=== PATIENT | male | born 1945 | race Caucasian/White ===

== ENCOUNTER → 2018-09-14 | Outpatient (CLI) | payer MEDICARE, OTHER ==
--- NOTE | 2018-09-14 15:56 | US ---
EXAMINATION TYPE: US abdomen comp/pelvis limited DATE OF EXAM: 09/14/2018 COMPARISON: NONE CLINICAL HISTORY: R10.11 Right upper quadrant pain, R31.9 Hematuria. EXAM MEASUREMENTS: Liver Length: 13.3 cm Gallbladder Wall: 0.2 cm CBD: 0.3 cm Spleen: 11.8 cm Right Kidney: 11.3 x 6.0 x 5.0 cm Left Kidney: 11.6 x 6.6 x 5.4 cm Pancreas: Obscured by bowel gas Liver: Heterogeneous echotexture Gallbladder: Possible polyp visualized measuring 0.4 cm CBD: wnl as visualized, limited due to overlying bowel gas Spleen: wnl Right Kidney: No hydronephrosis. Hypoechoic area visualized measuring 1.1 x 1.0 x 1.0 cm Left Kidney: No hydronephrosis. Hyperechoic area visualized mid pole measuring 1.4 x 1.2 x 1.6 cm Upper IVC: wnl Abd Aorta: Atherosclerotic changed visualized. Proximal and Mid portions appears ectatic Bladder: wnl Bilateral Jets Seen No. Left jet visualized IMPRESSION: 1. Heterogenous echotexture throughout the liver may reflect fatty liver versus diffuse hepatocellula r disease. Correlate clinically. 2. Gallbladder polyp. 3. 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 Right renal cysts. 4. Abdominal aortic ectasia.
== END | disposition home or self-care (01) ==
LOC: RADUSWWP 14:02
PROVIDERS: ATTEND Physician Assistant
DX: K82.4 Cholesterolosis of gallbladder (principal); N28.1 Cyst of kidney, acquired; I77.811 Abdominal aortic ectasia
CPT/HCPCS: 76700; 76857

== ENCOUNTER → 2018-11-04 | Outpatient (CLI) | payer MEDICARE, OTHER ==
--- NOTE | 2018-11-04 15:01 | CT ---
EXAMINATION TYPE: CT abdomen pelvis wo con DATE OF EXAM: 11/04/2018 COMPARISON: Abdominal ultrasound dated 09/14/2018 HISTORY: Right upper quadrant pain CT DLP: 1078 mGycm Automated exposure control for dose reduction was used. TECHNIQUE: Helical acquisition of images was performed from the lung bases through the pelvis. FINDINGS: LUNG BASES: Slight right hemidiaphragm elevation. LIVER/GB: Unremarkable unenhanced morphology. No cholelithiasis. The gallbladder polyps seen on the p rior ultrasound of 09/14/2017 is [address] seen [address] CT. Annual surveillance is recommended for gallbladder po lyps that are less than 1 cm. PANCREAS: No significant abnormality is seen. SPLEEN: No significant abnormality is seen. ADRENALS: No significant abnormality is seen. KIDNEYS: No hydronephrosis or nephrolithiasis. There is a 1.2 cm right upper pole renal cyst. FREE AIR: No free air is visualized ADENOPATHY: No greater than 1 cm short axis lymph node is seen in the abdomen or pelvis. REPRODUCTIVE ORGANS: Few central zone calcifications are noted. URINARY BLADDER: No significant abnormality is seen. OSSEOUS STRUCTURES: There is minimal retrolisthesis of L1 on L2 and L2 on L3 and moderate multilevel degenerative change of the spine. BOWEL: Scattered colonic diverticula are seen without pericolonic fat stranding. Appendix is contras t-filled and within normal limits. No dilated large or small bowel. OTHER: Extensive atherosclerosis is seen of the abdominal aorta and its branches. There is a question able infrarenal chronic abdominal aortic dissection seen on a single image only (series 3 image 50) a s there are 2 calcified crescentic densities suggesting a focal intimal flap. IMPRESSION: 1. COLONIC DIVERTICULOSIS WITHOUT EVIDENCE OF ACUTE DIVERTICULITIS. 2. HIDA SCAN COULD ASSESS FOR CHRONIC BILIARY DYSFUNCTION HOWEVER NO CT EVIDENCE OF ACUTE CHOLECYSTIT IS IS SEEN IN THIS PATIENT WITH RIGHT UPPER QUADRANT PAIN. THE SUBCENTIMETER POLYP IS NOT IDENTIFIED ON CT THAT WAS SEEN ON THE PRIOR ULTRASOUND OF 09/14/2018. ANNUAL SURVEILLANCE IS RECOMMENDED FOR POLY PS OF ASCITES. 3. POSSIBLE FOCAL INTRARENAL ABDOMINAL AORTIC CHRONIC DISSECTION FLAP SEEN AND A SINGLE IMAGE ONLY WI TH CALCIFIED MARGINS INDICATING CHRONICITY. BLOOD PRESSURE CONTROL IS RECOMMENDED. NO ANEURYSMAL DILA TATION.
== END | disposition home or self-care (01) ==
LOC: RADCTMAIN 13:04
PROVIDERS: ATTEND Surgery
DX: K57.30 Diverticulosis of large intestine without perforation or abscess without bleeding (principal); R31.9 Hematuria, unspecified
CPT/HCPCS: 74176

== ENCOUNTER → 2021-11-21 | Outpatient (CLI) | payer MEDICARE, OTHER ==
--- NOTE | 2021-11-21 21:42 | MR ---
EXAMINATION TYPE: MR knee RT wo con DATE OF EXAM: 11/21/2021 COMPARISON: Outside right knee x-ray November 14, 2021 HISTORY: Right Knee Pain for about one year. TECHNIQUE: Multiplanar, multisequence imaging of the right knee is performed without IV contrast. FINDINGS: MEDIAL MENISCUS: Medial extrusion medial meniscus on coronal images. Truncated posterior horn with ab normal increased signal extends towards central body which is emaciated. LATERAL MENISCUS: Anterior and posterior horns are intact without tear. CRUCIATE LIGAMENTS: The anterior and posterior cruciate ligaments are intact and unremarkable. COLLATERAL LIGAMENTS: The medial collateral ligament and lateral collateral ligament complex are inta ct and unremarkable. EXTENSOR MECHANISM: Visualized quadriceps and patellar tendons are intact. EFFUSION: Small to moderate size suprapatellar joint effusion. POPLITEAL CYST: No popliteal/jones cyst. TRICOMPARTMENT SPACES: Aexq-ii-tbtndocf tricompartmental joint space loss and spurring. CARTILAGE: Cartilaginous loss medial tibiofemoral compartment with areas of full-thickness loss seen. BONE MARROW SIGNAL: There is a heterogeneous diminished T1 and increased T2 signal in the medial tibi ofemoral compartment. OTHER: No additional significant abnormality is appreciated. IMPRESSION: 1. Full-thickness tear posterior horn medial meniscus extending into central body. 2. Tricompartment degenerative changes most prominent medial tibiofemoral compartment where moderate to advanced degenerative changes are noted as detailed above. Significant cartilaginous loss with dali ctive periarticular osseous edema noted. 3. Small to moderate-size suprapatellar joint effusion.
== END | disposition home or self-care (01) ==
LOC: RADMRIMAIN 13:08
PROVIDERS: ATTEND Orthopaedic Surgery
DX: M25.461 Effusion, right knee (principal); M23.321 Other meniscus derangements, posterior horn of medial meniscus, right knee; M17.11 Unilateral primary osteoarthritis, right knee

== ENCOUNTER 2022-01-01 08:14 | Day surgery (SDC) | payer MEDICARE, OTHER ==
[2021-12-31 09:05] VITALS: BMI 27.7
--- NOTE | 2021-12-31 17:28 | HP ---
HISTORY AND PHYSICAL DATE OF SURGERY: 01/01/2022 Mayur Gallegos is a 76-year-old patient seen with progressive right knee pain. We discussed options for treatment. He elected to proceed with right knee arthroscopy. Consent was obtained. PAST MEDICAL HISTORY: Hypertension, omq-uqxigbe-kxonmdgts diabetes, hyperlipidemia. PAST SURGICAL HISTORY: Noncontributory. DAILY MEDICATIONS: Benazepril, hydrochlorothiazide, metformin, simvastatin. ALLERGIES: NONE. SOCIAL HISTORY: He occasionally smokes cigarettes. PHYSICAL EVALUATION OF THE RIGHT KNEE: His range of motion is zero to 130. Mild effusion. Tenderness, medial joint line. Positive medial Delma's. Patellar crepitus. Ligaments stable. Hip rotation without pain. Distal neurovascular exam intact. Right knee radiographs revealed osteoarthritic changes. MRI right knee revealed medial meniscal tear and osteoarthritis. IMPRESSION: 1. Internal derangement of right knee with medial meniscal tear. 2. Right knee osteoarthritis. 3. Hypertension. 4. Hyperlipidemia. 5. Nrv-ulcxdxh-cwmvljcth diabetes. PLAN: Right knee arthroscopy with partial medial meniscectomy and debridement. MMODL / IJN: [id number] /
[~2022-01-01 08:14] MED LIST: DEXAMETHASONE SOD PHOSPHATE 4 MG/ML 1 ML VIAL IV ONE; LACTATED RINGERS 1,000 ML IV SCH; ONDANSETRON 4 MG/2 ML VIAL IVP ONE
[2022-01-01] MEDS ORDERED: LIDOCAINE 1% (10MG/ML) FOR IV START INTRADERMA ONE (09:05)
[2022-01-01 09:08] LABS: Glucose,Whole Blood 116 mg/dL (75-99)
[2022-01-01] MEDS ORDERED: PHENYLEPHRINE-0.9% NACL SYG 1,000 MCG/10 ML SYRINGE ONE (10:31)
[2022-01-01] MEDS ORDERED: LIDOCAINE 2% INJ 20 MG/ML (2 ML VIAL) ONE (10:31)
[2022-01-01] MEDS ORDERED: MIDAZOLAM 2 MG/2 ML VIAL ONE (10:31)
[2022-01-01] MEDS ORDERED: PROPOFOL 10 MG/ML 20 ML VIAL IV ONE (10:31)
[2022-01-01] MEDS ORDERED: fentaNYL (PF) 50 MCG/ML 2 ML AMP ONE (10:31)
[2022-01-01] MEDS ORDERED: BUPIVACAINE (PF) 0.25% 30 ML VIAL INTRAARTIC ONE ×2 (10:48→11:04)
[2022-01-01 11:16] VITALS: TEMP 96.8
[2022-01-01 11:16] LABS: Glucose,Whole Blood 122 mg/dL (75-99)
--- NOTE | 2022-01-01 11:16 | P.OP ---
Date of Procedure: 01/01/22 Preoperative Diagnosis: Internal derangement right knee Postoperative Diagnosis: 1. Tear medial and lateral meniscus right knee 2. Grade 4 chondromalacia medial femoral condyle right knee 3. Reactive synovitis medial, lateral and suprapatellar compartments right knee Procedure(s) Performed: 1. Arthroscopic partial medial and lateral meniscectomy right knee 2. Arthroscopic microfracture medial femoral condyle right knee 3. Arthroscopic partial synovectomy medial, lateral and suprapatellar compartments right knee Anesthesia: CLAUDIAA, local Surgeon: Tuan Shelby Estimated Blood Loss (ml): 8 Pathology: none sent Condition: stable Disposition: PACU Indications for Procedure: 76-year-old patient seen with progressive right knee pain. After treatment options were discussed, he elected to proceed with arthroscopy. Operative Findings: See description of procedure Description of Procedure: Patient was taken to the operative suite. Patient underwent a general anesthetic by the department of anesthesia. Patient was given preoperative antibiotics. The right lower extremity was placed in a well-padded arthroscopic leg albert. The right leg was prepped and draped in the normal sterile orthopedic fashion. A lateral parapatellar and suprapatellar incision was made. Trochars were inserted. Arthroscopy was initiated. Suprapatellar pouch revealed diffuse thick reactive synovitis. The patellofemoral joint appeared to articulate congruently. There was grade 2 chondromalacia the patella and grade 4 chondromalacia of the femoral sulcus with no significant osteochondral tearing present. The scope was guided into the medial gutter. No loose bodies or plica were identified. The scope was then guided into the medial compartment. A medial parapatellar incision was made. Trocar inserted followed by probe. There was a complex tear involving the posterior horn medial meniscus which did extend into the midbody area. There were areas of grade 4 chondromalacia of the femoral condyle and tibial plateau. There was thick reactive synovitis anteriorly. I performed a partial medial meniscectomy getting down to stable meniscal tissue. I performed a partial synovectomy decompressing the reactive synovitis anteriorly. I performed a microfracture to the medial femoral condyle penetrating the bone with resultant bleeding at the microfracture site. The residual meniscus was probed and was found to be stable. The residual osteochondral surface was stable. There was good decompression of the synovitis. Scope and probe were then guided into the intercondylar notch. Cruciates were identified, probed and found to be stable. The scope and probe were then guided into lateral compartment. There was a radial tear mid body lateral meniscus. There were grade 2/3 chondromalacia changes of the lateral femoral condyle. There was some thick reactive synovitis anteriorly. I performed a partial lateral meniscectomy getting down to stable meniscal tissue. I performed a partial synovectomy decompressing the reactive synovitis. The residual meniscus was probed and was found to be stable. There was good decompression of synovitis. The scope was in guided back into the suprapatellar compartment. I now introduced a motorized shaver into the suprapatellar compartment. I debrided out some piecemeal fragments of meniscus that I encountered. I performed a partial synovectomy. The shaver was now removed. There was good decompression of synovitis. I took one more look around the entire knee, no residual debris. Instruments were now removed from the joint. The joint was infiltrated with .25% Marcaine. Steri-Strips were applied to the portal sites. Sterile dressings were applied. The patient was placed into a MIRELLA hose. No tourniquet was utilized. The patient was awakened, transferred to a bed and taken to recovery stable satisfactory condition.
[2022-01-01] MEDS: HYDROmorphone 0.5 MG/0.5 ML SYRINGE IVP PRN ×3 (11:25→11:43)
[2022-01-01 11:27] VITALS: RESP 16
[2022-01-01 13:00] VITALS: BP 149/77; PULSE 59
== END 2022-01-01 13:43 | disposition home or self-care (01) ==
LOC: OR 08:14
PROVIDERS: ATTEND Orthopaedic Surgery
DX: S83.281A Other tear of lateral meniscus, current injury, right knee, initial encounter (principal); S83.241A Other tear of medial meniscus, current injury, right knee, initial encounter; I10 Essential (primary) hypertension; E11.9 Type 2 diabetes mellitus without complications; E78.5 Hyperlipidemia, unspecified; F17.210 Nicotine dependence, cigarettes, uncomplicated; Z79.84 Long term (current) use of oral hypoglycemic drugs; Z79.82 Long term (current) use of aspirin; Z79.899 Other long term (current) drug therapy
CPT/HCPCS: 29879; 29880; J2250; J1100; J0690; J2405; J3010; J2370; J2704; J1170; J2001

== ENCOUNTER → 2022-08-21 | Outpatient (CLI) | payer MEDICARE, OTHER ==
[2022-08-21 15:40] LABS: Basophils # (A) 0.04 X 10*3/uL (0.00-0.10); Basophils % (A) 0.6 %; Eosinophils # (A) 0.13 X 10*3/uL (0.04-0.35); Eosinophils % (A) 1.9 %; HCT 39.1 % (39.6-50.0); Immature Grans, Automated 0.4 %; Lymphocytes # (A) 1.79 X 10*3/uL (0.90-5.00); Lymphocytes % (A) 25.5 %; MCH 28.3 pg (27.0-32.0); MCHC 33.2 g/dL (32.0-37.0); MCV 85.2 fL (80.0-97.0); Monocytes # (A) 0.62 X 10*3/uL (0.20-1.00); Monocytes % (A) 8.8 %; NRBC Per 100 WBC 0 /100 WBCS (0.0-0.0); Neutrophils % (A) 62.8 %; Platelet Count 204 X 10*3/uL (140-440); RBC 4.59 X 10*6/uL (4.40-5.60); RDW 12.7 % (11.5-14.5); WBC 7.01 X 10*3/uL (4.50-10.00)
[2022-08-21 15:51] LABS: INR 0.94 (0.90-1.11); Prothrombin Time 10.7 sec (9.9-11.9)
[2022-08-21 18:13] LABS: African American GFR (CKD) 97.3 (60.0-200.0); Anion Gap 9.6 mmol/L (10.00-18.00); BUN/Creat Ratio 13.13 Ratio (12.00-20.00); Blood Urea Nitrogen 11.2 mg/dL (9.0-27.0); Calcium 9.1 mg/dL (8.7-10.3); Carbon Dioxide 25.9 mmol/L (20.0-27.5); Non-African American GFR(CKD) 83.9 (60.0-200.0); Potassium 4.7 mmol/L (3.5-5.5)
== END | disposition home or self-care (01) ==
LOC: LABPAT 09:32
PROVIDERS: ATTEND Orthopaedic Surgery
DX: Z01.812 Encounter for preprocedural laboratory examination (principal); M17.11 Unilateral primary osteoarthritis, right knee; Z22.322 Carrier or suspected carrier of Methicillin resistant Staphylococcus aureus
CPT/HCPCS: 80048; 85025; 85610; 87070

== ENCOUNTER 2022-09-21 08:11 | Day surgery (SDC) | payer MEDICARE, OTHER ==
--- NOTE | 2022-09-20 22:47 | HP ---
HISTORY AND PHYSICAL DATE OF SURGERY: 09/21/2022. HISTORY OF PRESENT ILLNESS: Mayur Gallegos is a 77-year-old gentleman seen with symptomatic right knee osteoarthritis. We discussed options for treatment. He elected to proceed with right total knee arthroplasty. Consent regarding the procedure was obtained. Medical clearance was provided by Dr. Alvarez. Cardiac clearance was provided by Dr. Dumont. PAST MEDICAL HISTORY: Cardiovascular disease, hypertension, hyperlipidemia, lcm-hrgjdre-ymulqnbie diabetes. PAST SURGICAL HISTORY: Knee arthroscopy. DAILY MEDICATIONS: 1. Benazepril. 2. Metformin. 3. Hydrochlorothiazide. 4. Simvastatin. ALLERGIES: None. SOCIAL HISTORY: Denies tobacco use. PHYSICAL EVALUATION OF THE RIGHT KNEE: His range of motion is 0 to 125. Mild effusion. Tenderness, medial joint line. Crepitus, medial patellofemoral compartments with range of motion. Pain with patellofemoral compression. Ligaments stable. Hip rotation without pain. Distal neurovascular exam is intact. RADIOGRAPHS: Radiographs of the right knee revealed severe osteoarthritic changes. IMPRESSION: 1. Right knee osteoarthritis. 2. Hypertension. 3. Hyperlipidemia. 4. Nxi-qvhglpa-vegfnmtji diabetes. PLAN: Right total knee arthroplasty. Surgery is scheduled for 09/21/2022. MMODL / IJN: [id number] /
[~2022-09-21 08:11] MED LIST changes: +ACETAMINOPHEN TAB 500 MG TAB PO PRN; +HYDROmorphone 0.5 MG/0.5 ML SYRINGE IVP PRN; -LACTATED RINGERS 1,000 ML IV SCH; +LIDOCAINE 1% (10MG/ML) FOR IV START INTRADERMA PRN; +MELOXICAM 7.5 MG TAB PO PRN; +MIDAZOLAM 2 MG/2 ML VIAL IV PRN; +TRANEXAMIC ACID IN NACL,ISO-OS 1,000 MG in SALINE 1 100ML.BAG IVPB PRN
[2022-09-21] MEDS ORDERED: LACTATED RINGERS 1,000 ML IV ONE ×3 (08:45→11:28)
[2022-09-21 09:04] LABS: Glucose,Whole Blood 133 mg/dL (70-110)
[2022-09-21] MEDS ORDERED: LIDOCAINE 2% (PF) 20 MG/ML 5 ML VIAL ONE (09:15)
[2022-09-21] MEDS ORDERED: fentaNYL (PF) 50 MCG/1 ML VIAL IVP ONE (09:20)
[2022-09-21] MEDS ORDERED: MIDAZOLAM 2 MG/2 ML VIAL IVP ONE (09:20)
--- NOTE | 2022-09-21 09:39 | P.ANPRN ---
Procedure Note - Anesthesia - Nerve Block Performed Right Adductor Canal Infusion Time Out Performed: Yes (0910) Date of Procedure: 09/21/22 Location of Patient: PreOp Indication: Acute Post-Operative Pain, Dx/Pain Location (Right Knee), Requested by Surgeon Specifically requested for management of pain by DrTracy: Tuan Shelby Sedation Type: Sedate with meaningful contact maintained Preparation: Sterile Prep, Sterile Dressing Position: Supine Catheter: Indwelling Needle Types: Pajunk Needle Gauge: 18 Ultrasound used to visualize needle placement: Yes Ultrasound used to observe medication spread: Yes Injectate: 0.5% Ropivacaine (see comment for volume) (20 cc + 10cc of Saline) Blood Aspirated: No Pain Paresthesia on Injection Noted: No Resistance on Injection: Normal Image Stored and Saved: Yes Events: Uneventful and Well Tolerated Right iPack Single Time Out Performed: Yes Date of Procedure: 09/21/22 Location of Patient: PreOp Indication: Acute Post-Operative Pain, Dx/Pain Location (RIGHT KNEE), Requested by Surgeon Specifically requested for management of pain by DrTracy: Tuan Shelby Sedation Type: Sedate with meaningful contact maintained Preparation: Sterile Prep Position: Left Lateral Catheter: None Needle Types: Pajunk Needle Gauge: 21 Ultrasound used to visualize needle placement: Yes Ultrasound used to observe medication spread: Yes Injectate: 0.5% Ropivacaine (see comment for volume) (20 cc + 10cc of Saline) Blood Aspirated: No Resistance on Injection: Normal Image Stored and Saved: Yes Events: Uneventful and Well Tolerated
[2022-09-21] MEDS ORDERED: fentaNYL (PF) 50 MCG/ML 2 ML AMP ONE (10:00)
[2022-09-21] MEDS ORDERED: TRANEXAMIC ACID IN NACL,ISO-OS 1,000 MG/100 ML BAG ONE (10:00)
[2022-09-21] MEDS ORDERED: ROPIVACAINE 5 MG/ML 30 ML VIAL ONE (10:00)
[2022-09-21] MEDS ORDERED: SODIUM CHLORIDE 0.9% (PF) 10 ML VIAL ONE (10:00)
[2022-09-21] MEDS ORDERED: MIDAZOLAM 2 MG/2 ML VIAL ONE (10:00)
[2022-09-21] MEDS ORDERED: PROPOFOL 10 MG/ML 20 ML VIAL IV ONE (10:00)
[2022-09-21] MEDS ORDERED: ceFAZolin 1,000 MG in SODIUM CHLORIDE 0.9% 1,000 ML IRRIGATION ONE (10:34)
[2022-09-21] MEDS ORDERED: HYDROcodone/APAP 5-325MG 1 EACH TAB PO PRN (11:52)
[2022-09-21] MEDS ORDERED: NALOXONE 0.4 MG/ML 1 ML VIAL IV PRN (11:52)
[2022-09-21] MEDS ORDERED: ONDANSETRON 4 MG/2 ML VIAL IVP PRN (11:52)
[2022-09-21] MEDS ORDERED: HYDROmorphone 0.5 MG/0.5 ML SYRINGE IVP PRN ×2 (11:52)
--- NOTE | 2022-09-21 11:52 | P.OP ---
Date of Procedure: 09/21/22 Preoperative Diagnosis: Right knee osteoarthritis Postoperative Diagnosis: Right knee osteoarthritis Procedure(s) Performed: Right total knee arthroplasty Implants: 1. Depuy attune size 8 right cruciate retaining cemented femur 2. Depuy attune size 8 fixed bearing cemented tibial baseplate 3. Depuy attune size 8 fixed bearing cruciate retaining 8 mm polyethylene tibial insert 4. Depuy attune 41 mm all polyethylene cemented patella Anesthesia: regional (Abductor canal catheter), spinal Surgeon: Tuan Shelby Bliss Press Operator #1: Eben Tejada Estimated Blood Loss (ml): 45 Pathology: other (Bone) Condition: stable Disposition: PACU Indications for Procedure: 77-year-old gentleman seen with symptomatic right knee osteoarthritis. After treatment options were discussed, he elected to proceed with right total knee ar throplasty. Operative Findings: See description of procedure Description of Procedure: Patient was taken to the operative suite after having an adductor canal catheter placed by the department of anesthesia. Patient underwent a spinal anesthetic by the department of anesthesia. Patient was given preoperative IV intake antibiotics and TXA. A well-padded tourniquet was placed about the right lower extremity. The lower extremity was then prepped and draped in the normal sterile orthopedic fashion. The extremity was elevated, a tourniquet was insufflated to 300. A standard anterior incision was made sharply through skin. Dissection was taken down through the subcutaneous soft tissues down to the extensor mechanism. A medial arthrotomy was performed, patella was everted and knee was flexed. There was advanced osteoarthritis noted. I introduced my distal intramedullary femoral drill. I then introduced the distal femoral cutting jig. Bora WARD secured the cutting jig with 2 pins. I held retractors in position while Bora WARD performed the distal femoral resection through the guide area we now removed her distal femoral cutting guide. We now placed our 4-in-1 femoral cutting block and positioned and it was secured with 2 pins by Bora WARD while I held the block in position. The distal femoral finishing was now completed. A proximal tibial cutting guide was positioned. I held the guide in the appropriate position with both hands well Bora WARD inserted stabilizing pins into the guide. Proximal tibial cut was made. We now placed a trial femoral component into position, along with an appropriate size tibial tray and insert. We now took the knee through range of motion and had full extension good flexion and good overall soft tissue balance noted. The patella was everted and stabilized with 2 towel clips held by Bora WARD while I performed a flush with patellar quad tendon utilizing a fresh sawblade. We templated the patella, appropriate drill holes were made. An appropriate trial patella was positioned, knee was taken through full range of motion with the patella tracking very nicely. The trial patella was removed. Drill holes were made through the femoral component. All trial components were removed after marking off the appropriate rotation of the tibia. Retractors were now positioned along the proximal tibia. An appropriate keel punch was made with the appropriate size tibial guide by myself on Bora WARD assisted by holding retractors. At this point appropriate size implants were chosen and opened. The joint was irrigated copiously with pulse lavage mechanical irrigation. The wound was irrigated with pulse lavage mechanical irrigation. We mixed antibiotic methylmethacrylate. We placed the knee into flexion. We placed multiple retractors assisted by Bora WARD to expose the proximal tibia. Once the methyl methacrylate was ready, the tibial component was cemented into place removing any excess methylmethacrylate form by both myself and Bora WARD. The femoral component was cemented into place removing the removing any excess methylmethacrylate performed by both myself and Bora WARD. We then inserted the appropriate size polyethylene tibial insert. We made sure that it was locked into position. We took the knee into full extension, and then back in a flexion making sure we had removed any excess methylmethacrylate. The patellar component was then cemented down and secured with clamp. Excess methylmethacrylate removed. We kept the knee in full extension, patellar clamp in position until methylmethacrylate had hardened. Once it had hardened the patellar clamp was removed. The knee was taken through full range of motion. The patella tracked nicely. There was good soft tissue balancing. The tourniquet was now released. Additional hemostasis was achieved via electrocautery. A second gram of TXA was given. The wound again was irrigated with pulse lavage mechanical irrigation. The extensor mechanism was repaired with Ethibond suture. We checked the repair with range of motion and it was stable. The subcutaneous soft tissues were repaired with Vicryl in layers. The skin was approximated with pernio/Dermabond. Sterile dressings were applied followed by loose web roll and Nnamdi bandage. The patient was transferred to a bed, and taken to recovery in stable and satisfactory condition. Bora WARD assisted with this complex procedure.
[2022-09-21] MEDS ORDERED: ROPIVACAINE 1,100 MG, SODIUM CHLORIDE 0.9% 500 ML 330 ML, EMPTY PAIN BALL 1 EACH MISCELLANE PRN ×4 (12:23→12:38)
--- NOTE | 2022-09-21 12:31 | XR ---
EXAMINATION TYPE: XR knee limited RT DATE OF EXAM: 09/21/2022 12:26 PM INDICATION: Patient age:Male; 77 years old; Reason for study: Evaluation for Postop abnormality and alignment; [facility]. COMPARISON: Right knee radiographs 07/10/2022. TECHNIQUE: The Right knee(s) was examined in AP and crosstable lateral projections. FINDINGS: Postsurgical changes from right knee arthroplasty with distal femoral and proximal tibial components. Hardware appears intact with appropriate alignment. There is associated soft tissue gas and edema. No acute fracture or dislocation. IMPRESSION: Postsurgical changes from right knee arthroplasty. Hardware appears intact with appropriate alignment .
[2022-09-21] MEDS: LACTATED RINGERS 1,000 ML IV SCH ×3 (15:22→19:44)
[2022-09-21] MEDS: HYDROmorphone 0.5 MG/0.5 ML SYRINGE IVP PRN ×2 (17:09→19:43)
[2022-09-21] MEDS: HYDROcodone/APAP 7.5-325MG 1 EACH TAB PO PRN (17:42)
[2022-09-21] MEDS: TAMSULOSIN 0.4 MG CAP.ER.24H PO SCH (19:43)
[2022-09-21 20:47] LABS: Glucose,Whole Blood 193 mg/dL (70-110)
[2022-09-21] MEDS ORDERED: SENNOSIDES-DOCUSATE SODIUM 1 EACH TAB PO SCH (21:00)
[2022-09-21] MEDS ORDERED: ATORVASTATIN 20 MG TAB PO SCH (21:00)
[2022-09-21] MEDS ORDERED: lisinopriL 20 MG TAB PO SCH (21:00)
--- NOTE | 2022-09-22 00:20 | P.CONS ---
History of Present Illness - Reason for Consult Consult date: 09/21/22 - History of Present Illness The patient is a 77-year-old male with a PMH of type II DM, hypertension, and hyper lipidemia who was admitted for an elective right total knee replacement. The patient underwent the procedure earlier today and was seen postoperatively on the surgical unit. He reported excellent control of his pain at the time of interview, rated at a 1 out of 10. He denied any additional complaints. Denied experiencing chest discomfort, shortness of breath, fever, chills, cough, nausea, vomiting, abdominal pain, diarrhea. Reports compliance with all his medications at home. Review of systems: Pertinent positives and negatives as discussed in HPI, a complete review of systems was performed and all other systems are negative. Physical examination: General: non toxic, no distress, appears at stated age, overweight Derm: no unusual rashes/lesions, warm Head: atraumatic, normocephalic, symmetric Eyes: EOMI, no lid lag, anicteric sclera, pupils equal round reactive to light ENT: Nose and ears atraumatic Neck: No cervical lymphadenopathy, trachea midline, supple Mouth: no lip lesion, mucus membranes moist Cardiovascular: S1S2 reg, no murmur, positive dorsalis pedis pulse bilateral, no edema Lungs: CTA bilateral, no rhonchi, no rales, no accessory muscle use Abdominal: soft, nontender to palpation, no guarding Ext: muscle strength 5 out of 5 in all extremities grossly except right lower extremity due to pain, right knee Nnamdi bandage in place no gross muscle atrophy, no contractures, Neuro: CN II-XI grossly intact, no gross focal neuro deficits Psych: Alert, oriented, appropriate affect Assessment/plan Chronic conditions: Type II DM, hypertension, hyperlipidemia -Insulin sliding scale and blood glucose monitoring -Continue with home meds Status post right total knee replacement -Defer management including pain control and DVT prophylaxis to the primary surgery service Past Medical History Past Medical History: Diabetes Mellitus, Hyperlipidemia, Hypertension, Osteoarthritis (OA), Prostate Disorder Additional Past Medical History / Comment(s): arthritis to knees History of Any Multi-Drug Resistant Organisms: None Reported Past Surgical History: Tonsillectomy Additional Past Surgical History / Comment(s): rt knee arthroscopic 01/11. colonoscopy, Past Anesthesia/Blood Transfusion Reactions: No Reported Reaction Past Psychological History: No Psychological Hx Reported Smoking Status: Former smoker Past Alcohol Use History: Occasional Additional Past Alcohol Use History / Comment(s): quit 15 yrs ago cigarettes, smoked for 50 yrs. occasional cigar now. Past Drug Use History: Marijuana Additional Drug Use History / Comment(s): cbd gummies occasionally . pt aware not to take 24hrs before procedure - Past Family History Mother Family Medical History: Diabetes Mellitus Additional Family Medical History / Comment(s): sister diabetic Father Family Medical History: Cancer Additional Family Medical History / Comment(s): bone cancer. Medications and Allergies Home Medications Medication Instructions Recorded Confirmed Type Aspirin [Adult Low Dose Aspirin EC] 81 mg PO HS 12/31/21 09/21/22 History Benazepril HCl [Lotensin] 40 mg PO HS 12/31/21 09/21/22 History Simvastatin [Zocor] 40 mg PO HS 12/31/21 09/21/22 History Tamsulosin HCl [Flomax] 0.4 mg PO BID 12/31/21 09/21/22 History metFORMIN HCL [Glucophage] 500 mg PO AC-SUPPER 12/31/21 09/21/22 History Multivit-Min/FA/Lycopen/Lutein 1 each PO 09/16/22 History [Centrum Silver Men Tablet] Unk Zinc 1 tab PO DAILY 09/16/22 09/21/22 History Allergies Allergy/AdvReac Type Severity Reaction Status Date / Time No Known Allergies Allergy Verified 09/21/22 08:45 Physical Exam Vitals: Vital Signs Temp Pulse Pulse Pulse Resp BP Pulse Ox 09/21/22 21:13 97 162/81 09/21/22 18:57 98.1 F 90 18 187/85 96 09/21/22 18:24 159/81 09/21/22 17:57 188/92 09/21/22 17:34 91 195/87 09/21/22 17:23 207/99 09/21/22 16:43 97.9 F 82 18 228/100 97 09/21/22 16:40 217/98 09/21/22 15:30 68 16 168/82 100 09/21/22 14:50 70 16 173/80 100 09/21/22 14:20 82 18 152/78 100 09/21/22 13:50 74 16 166/91 100 09/21/22 13:20 64 16 168/82 100 09/21/22 12:53 66 16 162/84 97 09/21/22 12:38 51 L 16 130/70 98 09/21/22 12:23 52 L 16 124/58 99 09/21/22 12:08 65 16 144/70 95 09/21/22 09:35 63 16 133/65 96 09/21/22 08:45 97.7 F 69 16 142/80 97 Intake and Output 09/21/22 09/21/22 09/22/22 14:59 22:59 06:59 Intake Total 1351 500 Output Total 45 1000 Balance 1306 -500 Intake: IV 1351 500 Output: Urine 1000 Estimated Blood Loss 45 Other: Voiding Method Toilet Weight 93.8 kg 93.8 kg Results Labs: Abnormal Lab Results - Last 24 Hours (Table) 09/21/22 09/21/22 Range/Units 09:03 20:46 POC Glucose (mg/dL) 133 H 193 H (70-110) mg/dL
[2022-09-22] MEDS: HYDROcodone/APAP 7.5-325MG 1 EACH TAB PO PRN ×3 (01:38→11:36)
[2022-09-22 03:04] VITALS: RESP 17
[2022-09-22 06:20] LABS: Glucose,Whole Blood 150 mg/dL (70-110)
[2022-09-22] MEDS: INSULIN ASPART (NovoLOG) 100 UNIT/ML VIAL SQ SCH ×2 (06:30→11:33)
[2022-09-22] MEDS: LACTATED RINGERS 1,000 ML IV SCH ×3 (07:19→07:20)
[2022-09-22 07:50] VITALS: BP 167/82; PULSE 73; TEMP 97.8
[2022-09-22] MEDS: TAMSULOSIN 0.4 MG CAP.ER.24H PO SCH (08:49)
[2022-09-22] MEDS ORDERED: ENOXAPARIN 30 MG/0.3 ML SYRINGE SQ SCH (09:00)
[2022-09-22 09:14] LABS: HCT 37.9 % (39.6-50.0); HGB 12.1 g/dL (13.0-17.0); MCH 27.7 pg (27.0-32.0); MCHC 31.9 g/dL (32.0-37.0); MCV 86.7 fL (80.0-97.0); Mean Platelet Volume 11.8 fL (9.5-12.2); NRBC Per 100 WBC 0 /100 WBCS (0.0-0.0); Platelet Count 199 X 10*3/uL (140-440); RBC 4.37 X 10*6/uL (4.40-5.60); RDW 12.9 % (11.5-14.5); WBC 15.16 X 10*3/uL (4.50-10.00)
[2022-09-22 10:18] LABS: Basophils # (A) 0.02 X 10*3/uL (0.00-0.10); Basophils % (A) 0.1 %; Eosinophils # (A) 0.01 X 10*3/uL (0.04-0.35); Eosinophils % (A) 0.1 %; Immature Grans, Automated 0.4 %; Lymphocytes # (A) 1.24 X 10*3/uL (0.90-5.00); Lymphocytes % (A) 8.2 %; Monocytes # (A) 1.55 X 10*3/uL (0.20-1.00); Monocytes % (A) 10.2 %; Neutrophils # (A) 12.28 X 10*3/uL (1.80-7.70)
--- NOTE | 2022-09-22 10:47 | P.PN ---
Progress Note - Text Progress Note Date: 09/22/22 Postoperative day # 1 status post total knee arthroplasty, on adductor canal perineural catheter placed for postoperative analgesia. Ropivacaine 0.2% 8 mL per hour through ON-Q pump continuous infusion. Pain is well controlled. On visual analog scale 2/10 Patient is taking PRN oral pain medications. Catheter site: Looks Ok. There is no erythema or tenderness. Continue with the current pain management plan and will follow.
[2022-09-22 11:30] LABS: Glucose,Whole Blood 132 mg/dL (70-110)
--- NOTE | 2022-09-22 11:30 | P.PN ---
Subjective Progress Note Date: 09/22/22 Subjective: Patient seen and examined at bedside. No acute events overnight. He claims that he has minimal right-sided knee pain from physical therapy earlier. He denies any chest pain, shortness of breath, abdominal pain, lightheadedness, palpitations, urinary or bowel complaints. Pertinent positives and negatives as discussed above, a complete review of systems was performed and all other systems are negative. Vitals Signs Reviewed. General: nontoxic, no distress, appears at stated age Derm: warm, dry, right knee dressing appears clean, dry, intact Head: atraumatic, normocephalic, symmetri Eyes: EOMI, no lid lag, anicteric sclera Mouth: no lip lesion, mucus membranes moist Cardiovascular: S1S2 reg, no murmur Lungs: CTA bilateral, no rhonchi, no rales , no accessory muscle use Abdominal: soft, nontender to palpation, no guarding, no appreciable organomegaly Ext: no gross muscle atrophy, no edema, no contractures Neuro: CN II-XI grossly intact, no focal neuro deficits Psych: Alert, oriented, appropriate affect Assessment and Plan: Status post right total knee replacement - Pain management, DVT prophylaxis per surgical service -PT/OT Chronic medical conditions: Type 2 diabetes - SSI, hold metformin HTN, HLD - continue home meds Patient medically optimized for discharge home Thank you for allowing us to participate in the care of this pleasant patient. Do not hesitate to contact us with questions. Someone can be reached from the [facility] hospitalist group all hours of the day at [phone] or via perfect serve. Objective - Vital Signs Vital signs: Vital Signs Temp 97.8 F 09/22/22 06:49 Pulse 73 09/22/22 06:49 Resp 17 09/22/22 06:49 BP 167/82 09/22/22 06:49 Pulse Ox 96 09/22/22 06:49 FiO2 Intake & Output 09/21/22 09/22/22 09/22/22 18:59 06:59 18:59 Intake Total 1851 650 Output Total 1045 Balance 806 650 Weight 93.8 kg Intake: IV 1851 Intake, IV Titration 650 Amount Lactated Ringers 1,000 ml 600 @ 100 mls/hr IV .Q10H REPLACED BY [facility] Rx#:[id number] ceFAZolin 2 gm In Sodium 50 Chloride 0.9% 50 ml @ 100 mls/hr IVPB Q8H REPLACED BY [facility] Rx#: [id number] Output: Urine 1000 Estimated Blood Loss 45 Other: Voiding Method Toilet Toilet # Voids 3 1 # Bowel Movements 0 - Labs CBC & Chem 7: 09/22/22 03:29 Labs: Abnormal Lab Results - Last 24 Hours (Table) 09/21/22 09/22/22 09/22/22 Range/Units 20:46 03:29 06:19 WBC 15.16 H (4.50-10.00) X 10*3/uL RBC 4.37 L (4.40-5.60) X 10*6/uL Hgb 12.1 L (13.0-17.0) g/dL Hct 37.9 L (39.6-50.0) % MCHC 31.9 L (32.0-37.0) g/dL Immature Gran # 0.06 H (0.00-0.04) X 10*3/uL Neutrophils # 12.28 H (1.80-7.70) X 10*3/uL Monocytes # 1.55 H (0.20-1.00) X 10*3/uL Eosinophils # 0.01 L (0.04-0.35) X 10*3/uL POC Glucose (mg/dL) 193 H 150 H (70-110) mg/dL
[2022-09-22] MEDS ORDERED: MULTIVITAMINS, THERA 1 EACH TAB PO SCH (12:00)
--- NOTE | 2022-09-22 12:58 | P.PN ---
Subjective Progress Note Date: 09/22/22 Principal diagnosis: Status post right total knee arthroplasty Patient evaluated at bedside, he is resting comfortably in his hospital chair, he has multiple family members present. He's been up and ambulating well with physical therapy, he was able to do the stairs. He did have a difficult time urinating yesterday, a straight cath was initiated, he has since then been urina ting with no difficulty. His pain is currently controlled with current medications. Patient denies any headaches, lightheadedness, chest pain or shortness of breath Objective - Vital Signs Vital signs: Vital Signs Temp 97.8 F 09/22/22 06:49 Pulse 73 09/22/22 06:49 Resp 17 09/22/22 06:49 BP 167/82 09/22/22 06:49 Pulse Ox 96 09/22/22 06:49 FiO2 Intake & Output 09/21/22 09/22/22 09/22/22 18:59 06:59 18:59 Intake Total 1851 650 Output Total 1045 Balance 806 650 Weight 93.8 kg Intake: IV 1851 Intake, IV Titration 650 Amount Lactated Ringers 1,000 ml 600 @ 100 mls/hr IV .Q10H [facility] Rx#:[id number] ceFAZolin 2 gm In Sodium 50 Chloride 0.9% 50 ml @ 100 mls/hr IVPB Q8H [facility] Rx#: [id number] Output: Urine 1000 Estimated Blood Loss 45 Other: Voiding Method Toilet Toilet # Voids 3 1 # Bowel Movements 0 - Exam Right lower extremity: Incision is clean, dry, and intact. The exofin fusion tape is in good condition. There is minimal soft tissue swelling and ecchymosis surrounding the medial and lateral aspects of the incision. Calf is soft, no tenderness with palpation. Plantar flexion, dorsiflexion, EHL, FHL are intact. Sensory exam to light touch throughout the extremity is intact, dorsal pedis pulses 2+. - Labs CBC & Chem 7: 09/22/22 03:29 Labs: Abnormal Lab Results - Last 24 Hours (Table) 09/21/22 09/22/22 09/22/22 Range/Units 20:46 03:29 06:19 WBC 15.16 H (4.50-10.00) X 10*3/uL RBC 4.37 L (4.40-5.60) X 10*6/uL Hgb 12.1 L (13.0-17.0) g/dL Hct 37.9 L (39.6-50.0) % MCHC 31.9 L (32.0-37.0) g/dL Immature Gran # 0.06 H (0.00-0.04) X 10*3/uL Neutrophils # 12.28 H (1.80-7.70) X 10*3/uL Monocytes # 1.55 H (0.20-1.00) X 10*3/uL Eosinophils # 0.01 L (0.04-0.35) X 10*3/uL POC Glucose (mg/dL) 193 H 150 H (70-110) mg/dL 09/22/22 Range/Units 11:27 WBC (4.50-10.00) X 10*3/uL RBC (4.40-5.60) X 10*6/uL Hgb (13.0-17.0) g/dL Hct (39.6-50.0) % MCHC (32.0-37.0) g/dL Immature Gran # (0.00-0.04) X 10*3/uL Neutrophils # (1.80-7.70) X 10*3/uL Monocytes # (0.20-1.00) X 10*3/uL Eosinophils # (0.04-0.35) X 10*3/uL POC Glucose (mg/dL) 132 H (70-110) mg/dL Assessment and Plan Assessment: Postoperative day #1 status post right total knee arthroplasty Plan: Pain control, plan for discharge home on Olin 7.5 mg/325 mg. Senna S will be used to help prevent constipation DVT prophylaxis, aspirin 81 mg twice a day for 30 days Wound care instructions discussed, this including both showering and icing and elevating instructions Home PT and nursing after discharge Medical recommendations Discharge planning: Patient stable for discharge home today Time with Patient: Less than 30
--- NOTE | 2022-09-22 13:02 | P.DS ---
Providers Date of admission: 09/21/2022 Expected date of discharge: 09/22/22 Attending physician: Tuan Shelby Consults: 09/21/22 11:52 Consult Physician Routine Consulting Provider: Ambrosio Goel Consult Reason/Comments: Medical management Do you want consulting provider notified?: Yes Primary care physician: [facility] Course: Date of admission: 09/21/2022 Date of discharge: 09/22/2022 Admission diagnosis: Status post right total knee arthroplasty Discharge diagnosis: Same Attending physician: Dr. Shelby Surgical procedures: Right total knee arthroplasty Brief history: Patient is a 77-year-old male with a history of progressive primary right knee osteoarthritis. At this point patient has failed conservative treatment measures and has opted to proceed with a elective right total knee arthroplasty. Hospital course: Details of patient's surgery can be found in operative report. Patient tolerated the procedure well and was subsequently transported to orthopedic floor. Patient's orthopeidc and medical care was provided daily. Patient had daily laboratory tests performed for evaluation of overall blood counts. Patient had daily physical therapy to include strengthening range of motion as well as education with walker ambulation. Patient was treated with Lovenox for their postoperative DVT prophylaxis during their inpatient stay. Patient was noted to have a relatively uneventful postoperative course. Patient reported satisfactory pain control with oral pain medications by postoperative day 0. Patient showed satisfactory progress with physical therapy. Patient moved steadily through the program and had no difficulty meeting the goals by postoperative day 1. Given patient's otherwise satisfactory course and having met physical therapy goals, plan is to discharge patient home on postoperative day 1. Discharge condition/disposition: Patient will be discharged home in stable condition. Discharge medications: Instructions are given on resumption of patient's normal daily medications per primary care recommendation, in addition patient will be prescribed Anchor 7.5 mg/325 mg, senna S. Discharge instructions: 1. Wound care and infection precautions, keep incision dry and covered while showering, no lotions, creams, moisturizers. No soaking, tubs, pools, hottubs. Do not scrub over the incision. 2. Weight-bear as tolerated with walker / cane until follow-up. 3. Ice and elevate when necessary. Do not exceed 20 minutes per hour with ice pack. 4. Utilize compression sleeve until seen at first follow up appointment. 5. Visiting nursing care. 6. Home physical therapy including home CPM. 7. Pain meds and anticoagulants per prescription. 8. Pain medication has potential to cause constipation. Increase oral fluid and fiber intake. Contact primary care provider if you have not had a bowel movement within 48 hours after discharge 9. No anti-inflammatory medication until discussed at first post operative visit, this including Motrin, Aleve, Mobic, Diclofenac. 10. Follow up in office at 2 weeks postop with Bora Tejada PA-C/Sohail Shook 11. Follow up with your primary care doctor 7-10 days after discharge. 12. Contact [facility] with any questions, . Procedures: Right total knee arthroplasty Patient Condition at Discharge: Good Plan - Discharge Summary Discharge Rx Participant: No New Discharge Prescriptions: New HYDROcodone/APAP 7.5-325MG [Anchor 7.5] 1 each PO Q4H PRN #42 tab PRN Reason: Pain Aspirin [Adult Low Dose Aspirin EC] 81 mg PO BID #60 tab Sennosides/Docusate Sodium [Senna-S 8.6-50 mg Tablet] 1 each PO DAILY PRN #30 tablet PRN Reason: Constipation Continue Simvastatin [Zocor] 40 mg PO HS Benazepril HCl [Lotensin] 40 mg PO HS Multivit-Min/FA/Lycopen/Lutein [Centrum Silver Men Tablet] 1 each PO metFORMIN HCL [Glucophage] 500 mg PO AC-SUPPER Tamsulosin HCl [Flomax] 0.4 mg PO BID No Action Unk Zinc 1 tab PO DAILY Aspirin [Adult Low Dose Aspirin EC] 81 mg PO HS Discharge Medication List Aspirin [Adult Low Dose Aspirin EC] 81 mg PO HS 12/31/21 [History] Benazepril HCl [Lotensin] 40 mg PO HS 12/31/21 [History] Simvastatin [Zocor] 40 mg PO HS 12/31/21 [History] Tamsulosin HCl [Flomax] 0.4 mg PO BID 12/31/21 [History] metFORMIN HCL [Glucophage] 500 mg PO AC-SUPPER 12/31/21 [History] Multivit-Min/FA/Lycopen/Lutein [Centrum Silver Men Tablet] 1 each PO 09/16/22 [History] Unk Zinc 1 tab PO DAILY 09/16/22 [History] Aspirin [Adult Low Dose Aspirin EC] 81 mg PO BID #60 tab 09/22/22 [Rx] HYDROcodone/APAP 7.5-325MG [Anchor 7.5] 1 each PO Q4H PRN #42 tab 09/22/22 [Rx] Sennosides/Docusate Sodium [Senna-S 8.6-50 mg Tablet] 1 each PO DAILY PRN #30 tablet 09/22/22 [Rx] Follow up Appointment(s)/Referral(s): [facility], [NON-STAFF] - 1-2 Days ([facility] will call you to schedule your in home nursing and physical therapy visits. ) [facility],Equipment [NON-STAFF] - As Needed (*Please call [facility] once home to arrange delivery of the Continuous Passive Motion (CPM) machine. ) Tuan Shelby DO [Doctor of Osteopathic Medicine] - 10/07/22 2:50 pm Activity/Diet/Wound Care/Special Instructions: Orthopedic Discharge Instructions: 1. Wound care and infection precautions, keep incision dry and covered while showering, no lotions, creams, moisturizers. No soaking, pools, hot tubs. Do not scrub over incision. 2. Weight-bear as tolerated with walker / cane until follow-up. 3. Ice and elevate when necessary. Do not exceed 20 minutes per hour with ice pack. 4. Utilize compression sleeve until seen at first follow up appointment. 5. Pain meds and anticoagulants per prescription. 6. Pain medication has potential to cause constipation. Increase oral fluid and fiber intake. Contact primary care provider if you have not had a bowel movement within 48 hours after discharge. 7. No anti-inflammatory medication until discussed at first post operative visit, this including Motrin, Aleve, Mobic, Diclofenac. 8. Follow up in office at 2 weeks postop with Bora Tejada PA-C/Sohail Breaux PA-C 9. Follow up with your primary care doctor 7-10 days after discharge. 10. Contact [facility] with any questions, . Wound care instructions: 1. Okay to remove foam dressing is a 09/28/2022 2. Okay to shower directly over incision after removal of dressing Discharge Disposition: HOME WITH HOME HEALTH SERVICES
== END 2022-09-22 14:17 | disposition home health service (06) ==
LOC: OR 08:11 → 4SSUR 11:57 → OR 09-22 14:17
PROVIDERS: ATTEND Orthopaedic Surgery
DX: M17.11 Unilateral primary osteoarthritis, right knee (principal); G89.18 Other acute postprocedural pain; I11.9 Hypertensive heart disease without heart failure; I25.10 Atherosclerotic heart disease of native coronary artery without angina pectoris; E78.5 Hyperlipidemia, unspecified; E11.9 Type 2 diabetes mellitus without complications; Z79.84 Long term (current) use of oral hypoglycemic drugs; Z79.899 Other long term (current) drug therapy; Z98.890 Other specified postprocedural states
CPT/HCPCS: 27447; 97161; 64999; 64448; 76942; 85025; 88300; 73560; C1776; C1713 ×2; C1751; J2250; J1100; J0690 ×3; J2405; J3010 ×2; J1650; J2795; J2704; J1170

== ENCOUNTER → 2023-02-09 | Outpatient (CLI) | payer MEDICARE, OTHER ==
[2023-02-10 05:23] LABS: Basophils # (A) 0.04 X 10*3/uL (0.00-0.10); Basophils % (A) 0.5 %; Eosinophils # (A) 0.13 X 10*3/uL (0.04-0.35); Eosinophils % (A) 1.6 %; HCT 43.7 % (39.6-50.0); HGB 13.7 d/dL (12.0-15.0); Lymphocytes # (A) 1.99 X 10*3/uL (0.90-5.00); Lymphocytes % (A) 23.8 %; MCHC 31.4 d/dL (32.0-37.0); MCV 86.2 FL (80.0-97.0); Mean Platelet Volume 11.7 FL (9.5-12.2); Monocytes # (A) 0.63 X 10*3/uL (0.20-1.00); Monocytes % (A) 7.5 %; NRBC Per 100 WBC 0 X 10*3/uL (0.00-0.01); Neutrophils # (A) 5.54 X 10*3/uL (1.80-7.70); Neutrophils % (A) 66.4 %; Platelet Count 215 X 10*3/uL (140-440); RBC 5.07 X 10*6/uL (4.40-5.60); RDW 13.2 % (11.5-14.5); WBC 8.35 X 10*3/uL (4.50-10.00)
[2023-02-10 05:58] LABS: Urine Creatinine 36.8 mg/dL (39.0-259.0)
[2023-02-10 12:26] LABS: ALT 17 U/L (10-49); AST 23 U/L (14-35); Albumin 4.5 d/dL (3.8-4.9); Albumin/Globulin Ratio 1.45 Ratio (1.60-3.17); Alkaline Phosphatase 74 U/L (41-126); Blood Urea Nitrogen 10.4 mg/dL (9.0-27.0); Calcium 10.2 mg/dL (8.7-10.3); Carbon Dioxide 26.2 mmol/L (21.6-31.8); Chloride 101 mmol/L (96-109); Globulin 3.1 d/dL (1.6-3.3); Glucose 106 mg/dL (70-110); LDL Cholesterol,Calculated 75.6 mg/dL (0.0-131.0); Potassium 5.4 mmol/L (3.5-5.5); Sodium 140 mmol/L (135-145); Total Bilirubin 0.4 mg/dL (0.3-1.2); Total Protein 7.6 d/dL (6.2-8.2)
== END | disposition home or self-care (01) ==
LOC: LABWHC1 11:59
PROVIDERS: ATTEND Family Medicine
DX: Z00.00 Encounter for general adult medical examination without abnormal findings (principal); Z12.5 Encounter for screening for malignant neoplasm of prostate; E11.9 Type 2 diabetes mellitus without complications; N40.0 Benign prostatic hyperplasia without lower urinary tract symptoms; I10 Essential (primary) hypertension; E78.5 Hyperlipidemia, unspecified
CPT/HCPCS: 80061; 80053; 84443; 85025; 82043; 82570; 83036; 36415; G0103

== ENCOUNTER → 2023-10-15 | Outpatient (CLI) | payer MEDICARE, OTHER ==
[2023-10-15 15:35] LABS: Blood Urea Nitrogen 14.4 mg/dL (9.0-27.0); Calcium 9.8 mg/dL (8.7-10.3); Chloride 104 mmol/L (96-109); Glucose 119 mg/dL (70-110); Potassium 4.8 mmol/L (3.5-5.5); Sodium 142 mmol/L (135-145)
== END | disposition home or self-care (01) ==
LOC: LABWHC1 07:46
PROVIDERS: ATTEND Internal Medicine Interventional Cardiology
DX: N18.9 Chronic kidney disease, unspecified (principal)
CPT/HCPCS: 36415; 80048

== ENCOUNTER 2023-11-02 07:01 | Day surgery (SDC) | payer MEDICARE, OTHER ==
[2023-11-02 07:32] LABS: Glucose,Whole Blood 133 mg/dL (70-110)
[2023-11-02] MEDS: LACTATED RINGERS 1,000 ML IV SCH (07:40)
[2023-11-02] MEDS ORDERED: LIDOCAINE 1% INJ 10MG/ML (20 ML MDV) ONE (08:08)
[2023-11-02] MEDS ORDERED: GLYCOPYRROLATE 0.2 MG/ML 2 ML VIAL ONE (08:08)
[2023-11-02] MEDS ORDERED: PROPOFOL 10 MG/ML 20 ML VIAL IV ONE (08:08)
[2023-11-02 08:09] VITALS: RESP 16; TEMP 97.5
--- NOTE | 2023-11-02 08:11 | P.GSHP ---
History of Present Illness H&P Date: 11/02/23 Chief Complaint: Colon cancer screening 78-year-old male here for colonoscopy. States he is overdue. Thinks his last colonoscopy was 10 years ago. Remembers having 2 polyps. Says he was told to have a follow-up in 5 years. No family history of colon cancer. No bowel co mplaints. Past Medical History Past Medical History: Diabetes Mellitus, Hyperlipidemia, Hypertension, Osteoarthritis (OA), Prostate Disorder Additional Past Medical History / Comment(s): arthritis bilat. thumbs, BPH History of Any Multi-Drug Resistant Organisms: None Reported Past Surgical History: Tonsillectomy Additional Past Surgical History / Comment(s): rt knee scope 01/11, colonoscopy, Rt. TKA Past Anesthesia/Blood Transfusion Reactions: No Reported Reaction Smoking Status: Former smoker - Past Family History Mother Family Medical History: Diabetes Mellitus Additional Family Medical History / Comment(s): sister diabetic Father Family Medical History: Cancer Additional Family Medical History / Comment(s): bone cancer. Medications and Allergies Home Medications Medication Instructions Recorded Confirmed Type Aspirin [Adult Low Dose Aspirin EC] 81 mg PO QAM 12/31/21 11/02/23 History Benazepril HCl [Lotensin] 40 mg PO HS 12/31/21 11/02/23 History Simvastatin [Zocor] 40 mg PO HS 12/31/21 11/02/23 History Tamsulosin HCl [Flomax] 0.4 mg PO BID 12/31/21 11/02/23 History metFORMIN HCL [Glucophage] 500 mg PO AC-SUPPER 12/31/21 11/02/23 History Furosemide [Lasix] 20 mg PO QAM 10/28/23 11/02/23 History Naproxen Sodium [Aleve] 220 mg PO BID 10/28/23 11/02/23 History amLODIPine [Norvasc] 2.5 mg PO QAM 10/28/23 11/02/23 History Allergies Allergy/AdvReac Type Severity Reaction Status Date / Time No Known Allergies Allergy Verified 11/02/23 07:42 Surgical - Exam Vital Signs Temp Pulse Resp BP Pulse Ox 97.5 F L 67 16 147/76 95 11/02/23 07:38 11/02/23 07:38 11/02/23 07:38 11/02/23 07:38 11/02/23 07:38 Physical exam: General: Well-developed, well-nourished HEENT: Normocephalic, sclerae nonicteric Abdomen: Nontender, nondistended Extremities: No edema Neuro: Alert and oriented Results - Labs Abnormal Lab Results - Last 24 Hours (Table) 11/02/23 Range/Units 07:29 POC Glucose (mg/dL) 133 H (70-110) mg/dL Assessment and Plan (1) Colon cancer screening Narrative/Plan: Will proceed with colonoscopy at this time. Current Visit: Yes Status: Acute Code(s): Z12.11 - ENCOUNTER FOR SCREENING FOR MALIGNANT NEOPLASM OF COLON SNOMED Code(s): 124846060
--- NOTE | 2023-11-02 08:27 | P.PCN ---
Date of Procedure: 11/02/23 Procedure(s) Performed: PREOPERATIVE DIAGNOSIS: Colon cancer screening with history of polyps POSTOPERATIVE DIAGNOSIS: Rectal polyp PROCEDURE: Colonoscopy with snare polypectomy ANESTHESIA: MAC SURGEON: Michael Hamilton M.D. SPECIMENS: Rectal polyp ENDOSCOPIC PROCEDURE: The patient was placed on the endoscopy table in the left decubitus position. The Olympus colonoscope was inserted into the anus and passed under direct visualization to the base of the cecum. The appendiceal orifice was visualized. From that point the scope was slowly withdrawn inspecting all surfaces carefully. There were no neoplastic inflammatory or polypoid lesions throughout the cecum, ascending, transverse, descending, and sigmoid colon. In the rectum a small polyp was seen and removed using the snare with cautery technique. The remainder of the rectum was normal. The patient had extensive diverticulosis throughout the colon. Digital rectal examination was normal. The patient was taken to the recovery room in stable condition per anesthesia guidelines. RECOMMENDATIONS: Await biopsy results. Anticipate repeat colonoscopy 5 years.
[2023-11-02 09:24] VITALS: BP 144/83; PULSE 76
== END 2023-11-02 09:06 | disposition home or self-care (01) ==
LOC: ORWHC2ENDO 07:01
PROVIDERS: ATTEND Surgery
DX: Z12.11 Encounter for screening for malignant neoplasm of colon (principal); D12.8 Benign neoplasm of rectum; K57.30 Diverticulosis of large intestine without perforation or abscess without bleeding; I10 Essential (primary) hypertension; E78.5 Hyperlipidemia, unspecified; E11.9 Type 2 diabetes mellitus without complications; N40.0 Benign prostatic hyperplasia without lower urinary tract symptoms; M19.90 Unspecified osteoarthritis, unspecified site; Z90.89 Acquired absence of other organs; Z96.651 Presence of right artificial knee joint; Z98.890 Other specified postprocedural states; Z87.891 Personal history of nicotine dependence; Z83.3 Family history of diabetes mellitus; Z80.8 Family history of malignant neoplasm of other organs or systems; Z79.82 Long term (current) use of aspirin; Z79.84 Long term (current) use of oral hypoglycemic drugs; Z79.899 Other long term (current) drug therapy; Z86.010 Personal history of colon polyps
CPT/HCPCS: 88305; 45385; J2001; J2704